=== PATIENT | female | born 1995 | race African-American/Black ===

== ENCOUNTER 2020-01-01 08:30 | Inpatient (IN) | payer OTHER ==
[2020-01-01] MEDS ORDERED: DINOPROSTONE 10 MG VAGINAL SUPPOSITORY VG ONE (09:27)
--- NOTE | 2020-01-01 09:33 | HP ---
Past Medical History - Admission Chief Complaint: for elective induction of labor; followed by Antony Benjamin and Shani History Source: Patient Limitations to Obtaining History: No Limitations - Past Medical History ...: 4 ...Para: 1 ...Spon : 2 ...Living Children: 1 ...EDC by Artur: 01/07/20 - Past Surgical History Past Surgical History: Yes: None Hx Myomectomy: No Hx Transabdominal Cerclage: No - Smoking History Smoking history: Never smoked - Alcohol/Substance Use Hx Alcohol Use: No History of Substance Use: reports: None - Social History Usual Living Arrangement: Yes: With Spouse Home Medications - Allergies Allergies/Adverse Reactions: Allergies Allergy/AdvReac Type Severity Reaction Status Date / Time pineapple Allergy Verified 12/28/19 01:44 - Home Medications Home Medications: Ambulatory Orders Ferrous Sulfate [Feosol] 325 mg PO DAILY 12/28/19 Vits96/Iron Fum/Folic [ Tablet] 1 each PO DAILY 12/28/19 Physical Exam - Maternity Constitutional: Yes: Well Nourished Eyes: Yes: WNL HENT: Yes: WNL Neck: Yes: WNL Cardiovascular: Yes: WNL Lungs: Normal air movement - Abdominal Exam/OB Number of Fetuses: Single Presentation: Vertex Contractions: Yes Regularity: Irregular Intensity: Mild Monitor Mode: External Heart Rate (range): 140 Category: I Accelerations: Uniform Decelerations: None - Vaginal Exam/OB Vaginal Bleeding: No Speculum Exam: No Dilatation (cm): 2 cm Effacement (%): 50-60 % Amniotic Membrane Status: Intact Presentation: Vertex/Position Station: -2 - Physical Exam Edema: No Problem List - Problems (1) with 39 completed weeks gestation Code(s): Z3A.39 - 39 WEEKS GESTATION OF Assessment/Plan at 39 weeks gestation for elective induction of labor via cervidil
[2020-01-01 12:03] VITALS: BMI 29.3
[2020-01-01] MEDS ORDERED: BUTORPHANOL TARTRATE 2 MG/ML VIAL ONE (13:56)
[2020-01-01] MEDS ORDERED: PROMETHAZINE HCL 25 MG/1 ML VIAL ONE (13:57)
[2020-01-01] MEDS: ELECTROLYTE-148 SOLN 1,000 ML IV SCH ×2 (14:15→17:35)
[2020-01-01] MEDS ORDERED: BUTORPHANOL TARTRATE 2 MG/ML VIAL IVPB ONE (14:30)
[2020-01-01] MEDS ORDERED: PROMETHAZINE HCL 25 MG/1 ML VIAL IVPB ONE (14:30)
[2020-01-01] MEDS ORDERED: PCA PUMP NR ONE ×2 (17:15→21:40)
[2020-01-01] MEDS ORDERED: BUPIVACAINE HCL/PF 0.25% (2.5MG/ML) 10 ML VIAL ONE (17:28)
[2020-01-01] MEDS ORDERED: FENTANYL/BUPIVACAINE/NS/PF - PCEA - 50 ML DISP.SYRIN EP ONE ×2 (17:41→21:40)
[2020-01-01] MEDS: FENTANYL/BUPIVACAINE/NS/PF - PCEA - 50 ML DISP.SYRIN EP SCH (17:45)
[2020-01-01] MEDS ORDERED: NALOXONE HCL 0.4 MG/ML VIAL IVPUSH PRN (17:48)
--- NOTE | 2020-01-01 20:02 | PN ---
Progress Note (short form) - Note Progress Note: patient requested and received epidural, prior to that received stadol/ phenergan iv now comfortable cervix= 3-4cm/ 60%/ -1 category one tracing [id number]/ moderate variability/ acc/ no decelerations/ contractions q 2-3 I/P: continue DEBORA Problem List - Problems (1) with 39 completed weeks gestation Code(s): Z3A.39 - 39 WEEKS GESTATION OF
--- NOTE | 2020-01-01 23:44 | PN ---
Progress Note (short form) - Note Progress Note: cervidil removed cervix= 4cm/ 60 %/ -1 will start Pitocin Problem List - Problems (1) with 39 completed weeks gestation Code(s): Z3A.39 - 39 WEEKS GESTATION OF
[2020-01-01] MEDS ORDERED: OXYTOCIN 30 UNITS in 0.9% NS 30 UNIT/500 ML INFUS.BAG IVPB SCH (23:45)
[2020-01-02] MEDS ORDERED: OXYTOCIN 30 UNITS in 0.9% NS 30 UNIT/500 ML INFUS.BAG IVPB ONE (00:43)
[2020-01-02] MEDS: ELECTROLYTE-148 SOLN 1,000 ML IV SCH ×2 (01:15→20:03)
[2020-01-02] MEDS ORDERED: OXYTOCIN 30 UNITS in 0.9% NS 30 UNIT/500 ML INFUS.BAG IVPB SCH (01:15)
[2020-01-02] MEDS ORDERED: FENTANYL/BUPIVACAINE/NS/PF - PCEA - 50 ML DISP.SYRIN EP ONE (01:19)
[2020-01-02] MEDS ORDERED: LIDO 2%/EPI 1:200000 PRESRVFRE (20 ML SDVIAL) ONE (03:10)
[2020-01-02] MEDS ORDERED: OXYTOCIN 20 UNITS in 0.9% NS 20 UNIT/1,000 ML INFUS.BAG IV ONE (05:02)
[2020-01-02] MEDS ORDERED: BENZOCAINE 20% 57 GM BOTTLE TP PRN (05:32)
[2020-01-02] MEDS ORDERED: METHYLERGONOVINE MALEATE 0.2 MG/1 ML AMP IM PRN (05:32)
[2020-01-02] MEDS ORDERED: WITCH HAZEL 50% (TUCKS) 40 PAD/JAR PAD TP PRN (05:32)
[2020-01-02] MEDS ORDERED: BISACODYL 10 MG SUPP.RECT RC PRN (05:32)
[2020-01-02] MEDS ORDERED: BENZOCAINE 28 GM HEMORRHOIDAL OINTMENT TP PRN (05:32)
--- NOTE | 2020-01-02 05:36 | PN ---
Delivery - Delivery Type of Anesthesia: Epidural Episiotomy/Laceration: None ( of live baby girl; OA position; intact perineum; placenta spontaneously delivered and complete; cord insertion at edge of placental disc) EBL (cc): 350 Delivery, Single - [place] Feeding Plan Initial Plan: Elected not to breastfeed exclusively throughout hospitalization
[2020-01-02] MEDS ORDERED: D5W-LR W/ 20 UNITS OXYTOCIN 20 UNIT/1,000 ML INFUS.BAG IV SCH (05:45)
[2020-01-02] MEDS: IBUPROFEN 600 MG TABLET (FP) PO PRN ×2 (09:53→21:33)
[2020-01-02] MEDS: ACETAMINOPHEN 325 MG TABLET (FP) PO PRN ×2 (09:53→21:32)
[2020-01-02] MEDS: FENTANYL/BUPIVACAINE/NS/PF - PCEA - 50 ML DISP.SYRIN EP SCH (20:03)
[2020-01-03 09:13] LABS: BASO % 0.5 % (0-2.0); EOS % 2.2 % (0-4.5); HEMATOCRIT 32.7 % (32.4-45.2); HEMOGLOBIN 10.9 GM/dL (10.7-15.3); LYMPH % 30.1 % (8-40); MCH 30.6 pg (25.7-33.7); MCHC 33.2 g/dl (32.0-36.0); MEAN CELL VOLUME 92.4 fl (80-96); MEAN PLT VOLUME 7.9 fl (7.5-11.1); NEUT % 60.2 % (42.8-82.8); PLATELET COUNT 261 K/MM3 (134-434); RBC 3.54 M/mm3 (3.60-5.2); RDW 13.4 % (11.6-15.6); WHITE BLOOD COUNT 12.6 K/mm3 (4.0-10.0)
[2020-01-03 12:27] VITALS: BP 120/83; PULSE 78; TEMP 98.1
--- NOTE | 2020-01-03 13:59 | DS ---
Physical Exam-[employer] Vital Signs: Vital Signs Temperature 98.1 F 01/03/20 09:00 Pulse Rate 78 01/03/20 09:00 Respiratory Rate 18 01/03/20 09:00 Blood Pressure 120/83 01/03/20 09:00 O2 Sat by Pulse Oximetry (%) 99 01/02/20 22:00 Constitutional: Yes: Calm Cardiovascular: Yes: WNL Respiratory: Yes: WNL ....Post : Yes: Uterus firm Breast(s): Yes: WNL Musculoskeletal: Yes: WNL Extremities: Yes: WNL Edema: No Labs: CBC, BMP 01/03/20 08:02 Delivery - Delivery Type of Anesthesia: Epidural Episiotomy/Laceration: None ( of live baby girl; OA position; intact perineum; placenta spontaneously delivered and complete; cord insertion at edge of placental disc) EBL (cc): 350 Delivery, Single - Stages of Labor Date 1st Stage Initiatied: 01/01/20 Time 1st Stage Initiated: 14:15 Date 2nd Stage Initiated: 01/02/20 Time 2nd Stage Initiated: 05:00 Date of Delivery: 01/02/20 Time of Delivery: 05:16 Time Placenta Delivered: 05:18 - Condition of Mold Tooling Technician/Testing Engineer Present: No Gender: Female Weight: 2.977 kg Position: OA Total Hours ROM (Hrs/Mins): 36m - 1 Minute Total Score: 9 5 Minutes Total Score: 9 - Feeding Plan Initial Plan: Elected not to breastfeed exclusively throughout hospitalization Remarks - Remarks Remarks: S/P discharge follow up clinic appt 6 wk Discharge Summary Problems reviewed: Yes Reason For Visit: INDUCTION OF LABOR Current Active Problems with 39 completed weeks gestation (Acute) Procedures: Principal: Condition: Good - Instructions Diet, Activity, Other Instructions: regular Disposition: HOME - Home Medications Comprehensive Discharge Medication List: Ambulatory Orders Ferrous Sulfate [Feosol] 325 mg PO DAILY 12/28/19 Vits96/Iron Fum/Folic [ Tablet] 1 each PO DAILY 12/28/19 Prescription Drug Monitoring Program (I-STOP) results: I-STOP not reviewed
[2020-01-03] MEDS ORDERED: SENNOSIDES/DOCUSATE COMBO (SENNA PLUS) TABLET (UD) PO PRN (22:00)
== END 2020-01-03 15:00 | disposition home or self-care (01) | DRG 560 ==
LOC: JLDR 08:30 → J3W 01-02 09:01
PROVIDERS: ADMIT Obstetrics & Gynecology; ATTEND Obstetrics & Gynecology
PROC: 10E0XZZ Delivery of Products of Conception, External Approach (ICD-10-PCS; principal; 2020-01-02)
DX: O80 Encounter for full-term uncomplicated delivery (principal); Z3A.39 39 weeks gestation of pregnancy; Z37.0 Single live birth
CPT/HCPCS: 36415; 59409; 85025